=== PATIENT | male | born 1975 | race Caucasian/White ===

== ENCOUNTER 2022-11-17 13:21 | Emergency (ER) | payer SELFPAY ==
[2022-11-17 13:42] VITALS: BP 137/88; PULSE 126; RESP 19; TEMP 98.3; BMI 29.1
== END 2022-11-17 15:14 | disposition home or self-care (01) ==
LOC: JERFT 13:21
DX: S42.254A Nondisplaced fracture of greater tuberosity of right humerus, initial encounter for closed fracture (principal); W01.0XXA Fall on same level from slipping, tripping and stumbling without subsequent striking against object, initial encounter
CPT/HCPCS: 73000-TC-RT-FY; 73030-TC-RT-FY; 73060-TC-RT-FY; 99284-25